=== PATIENT | male | born 1935 | race Caucasian/White ===

== ENCOUNTER 2018-09-17 12:04 | Emergency (ER) | payer MEDICARE ==
[~2018-09-17] VITALS: Ht 175.3 cm; Wt 79.4 kg
[2018-09-17] MEDS ORDERED: KLOR-CON 1010 MEQ PO (12:16)
[2018-09-17] MEDS ORDERED: NORTRIPTYLINE H10 M1 PO (12:16)
[2018-09-17] MEDS ORDERED: LASIX 20 MG TAB20 MG PO (12:16)
[2018-09-17] MEDS ORDERED: LIPITOR 20 MG T20 M1 PO (12:16)
[2018-09-17] MEDS ORDERED: LISINOPRIL5 MG PO (12:17)
[2018-09-17] MEDS ORDERED: LOPRESSOR25 PO (12:17)
[2018-09-17] MEDS ORDERED: VITAMIN D1000 UNI1 PO (12:18)
[2018-09-17] MEDS ORDERED: ASPIR 8181 MG PO (12:18)
[2018-09-17] MEDS ORDERED: STOOL SOFTENER100 M1 PO (12:18)
[2018-09-17] MEDS ORDERED: CALCIUM 500+D1 EAC2 PO (12:19)
[2018-09-17] MEDS ORDERED: CENTRUM SILVER1 EAC4 PO (12:19)
[2018-09-17] MEDS ORDERED: FISH OIL 1,001000 M2 PO (12:19)
[2018-09-17] MEDS ORDERED: CRANBERRY200 MG PO (12:19)
[2018-09-17] MEDS ORDERED: VITAMIN E100 UNI1 PO (12:19)
[2018-09-17 13:41] VITALS: BP 164/78
== END 2018-09-17 13:41 | disposition home or self-care (01) ==
LOC: M.ERS 12:04
DX: S10.15XA Superficial foreign body of throat, initial encounter (principal); G35 Multiple sclerosis; I10 Essential (primary) hypertension; J44.9 Chronic obstructive pulmonary disease, unspecified; N40.0 Benign prostatic hyperplasia without lower urinary tract symptoms; Z85.89 Personal history of malignant neoplasm of other organs and systems; Z88.2 Allergy status to sulfonamides; Z88.0 Allergy status to penicillin; Z91.041 Radiographic dye allergy status; X58.XXXA Exposure to other specified factors, initial encounter; Y93.89 Activity, other specified; Y92.89 Other specified places as the place of occurrence of the external cause; Y99.8 Other external cause status